=== PATIENT | female | born 1935 | race Caucasian/White ===

== ENCOUNTER 2016-11-09 06:35 | Emergency (ER) | payer MEDICARE, BC ==
--- NOTE | 2016-11-09 07:07 | EDM.PDOC ---
ED HISTORY OF PRESENT ILLNESS - General Chief Complaint: Respiratory Problem Stated Complaint: BY AMBULANCE Time Seen by Provider: 11/09/16 06:58 Source of Information: Reports: Patient History Limitations: Reports: No limitations - History of Present Illness INITIAL COMMENTS - FREE TEXT/NARRATIVE: Patient states that she woke this am with difficulty breathing. 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 States that she feels like she is having trouble getting air around the mass. No other complaints currently. States that she has been having some nasal drainage and dizziness since September. 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 - Related Data Allergies/ADRs: Allergies Allergy/AdvReac Type Severity Reaction Status Date / Time Nyldzxs-Dzt-Rwa Reductase Allergy Muscle Verified 10/22/16 07:17 Inhibitor Weakness Home Meds: Home Meds Aspirin [Adult Low Dose Aspirin EC] 81 mg PO DAILY 01/14/15 [History] Garlic [Garlique] 1 tab PO DAILY 01/14/15 [History] Hydrochlorothiazide 25 mg PO DAILY 01/14/15 [History] Lutein/Minerals/Vit A,C & E [I-Gerald] 1 tab PO DAILY 01/14/15 [History] Metoprolol Succinate [Toprol XL 50mg] 50 mg PO DAILY 01/14/15 [History] Potassium Chloride [Klor-Con] 20 meq PO DAILY 11/09/16 [History] Past Medical History Cardiovascular History: Reports: Hypertension - Infectious Disease History Infectious Disease History: Reports: Chicken pox, Measles, Mumps - Past Surgical History Musculoskeletal Surgical History: Reports: Knee replacement Social & Family History - Family History Family Medical History: Noncontributory - Tobacco Use Smoking Status *Q: Never Smoker Second Hand Smoke Exposure: No - Caffeine Use Caffeine Use: Reports: Coffee - Alcohol Use Days Per Week of Alcohol Use: 0 - Recreational Drug Use Recreational Drug Use: No - Living Situation & Occupation Occupation: retired ED ROS GENERAL - Review of Systems Review Of Systems: See Below HEENT: Reports: Rhinitis, Throat swelling Respiratory: Reports: shortness of breath, cough Cardiovascular: Reports: No symptoms GI/Abdominal: Reports: No symptoms Skin: Reports: no symptoms Neurological: Reports: dizziness ED EXAM, GENERAL - Physical Exam Exam: See Below Exam Limited By: No limitations General Appearance: alert, WD/WN, no apparent distress Eye Exam: bilateral eye: EOMI, normal inspection, PERRL Ears: normal external exam, normal canal, hearing grossly normal, normal TMs Ear Exam: bilateral ear: auricle normal, canal normal, TM normal Nose: nasal drainage, clear rhinorrhea Throat/Mouth: Normal inspection, Normal lips, Normal teeth, Normal gums, Normal oropharynx, Normal voice, No airway compromise Neck: normal inspection, supple, non-tender, full range of motion, thyromegaly Respiratory/Chest: no respiratory distress, lungs clear, normal breath sounds, no accessory muscle use, chest non-tender Cardiovascular: normal peripheral pulses, regular rate, rhythm, no edema, no gallop, no JVD, no murmur, no rub GI/Abdominal: normal bowel sounds, soft, non tender, no organomegaly, no distention, no abnormal bruit, no mass Neurological: alert, oriented, CN II-XII intact, normal cognition, normal gait, normal reflexes, no motor/sensory deficits Skin Exam: Warm, Dry, Intact, Normal color, No rash Lymphatic: no adenopathy Course - Vital Signs Last Recorded V/S: Last Vital Signs Temp 97 F 11/09/16 06:51 Pulse 70 11/09/16 09:19 Resp 12 11/09/16 09:19 BP 125/60 11/09/16 09:19 Pulse Ox 100 11/09/16 09:19 - Orders/Labs/Meds Orders: Active Orders 24 hr Category Date Time Status RT Aerosol Therapy [RC] ASDIRECTED Care 11/09/16 09:03 Active Chest 2V [CR] Urgent Exams 11/09/16 07:15 Taken Soft Tissue Neck wo Cont [CT] Urgent Exams 11/09/16 07:15 Taken Sodium Chloride 0.9% [Normal Saline] 1,000 ml Med 11/09/16 07:15 Active IV .BOLUS Medication Orders Sodium Chloride (Normal Saline) 1,000 mls @ 75 mls/hr IV .BOLUS ONE Stop: 11/09/16 20:34 Last Admin: 11/09/16 08:16 Dose: 75 mls/hr Labs: Laboratory Tests 11/09/16 11/09/16 11/09/16 Range/Units 07:25 07:25 07:25 WBC 8.7 (5.0-10.0) 10^3/uL RBC 4.48 (4.2-5.4) 10^6/uL Hgb 13.2 (12.0-16.0) g/dL Hct 38.3 (37.0-47.0) % MCV 85.5 (80-100) fL MCH 29.5 (27.0-34.0) pg MCHC 34.5 (33.0-35.0) g/dL Plt Count 367 (150-450) 10^3/uL Neut % (Auto) 76.4 H (42.2-75.2) % Lymph % (Auto) 14.3 L (20.5-50.1) % [place] % (Auto) 8.3 H (2-8) % Eos % (Auto) 0.3 L (1.0-3.0) % Baso % (Auto) 0.7 (0.0-1.0) % Sodium 133 L (135-145) mmol/L Potassium 3.6 (3.6-5.0) mmol/L Chloride 100 L (101-111) mmol/L Carbon Dioxide 25.0 (21.0-31.0) mmol/L Anion Gap 11.6 BUN 10 (7-18) mg/dL Creatinine 0.6 (0.6-1.3) mg/dL Est Cr Clr Drug Dosing 66.17 mL/min Estimated GFR (MDRD) > 60 BUN/Creatinine Ratio 16.66 Glucose 109 H (74-105) mg/dL Calcium 8.9 (8.4-10.2) mg/dl Total Bilirubin 0.7 (0.2-1.0) mg/dL AST 16 (10-42) IU/L ALT 13 (10-60) IU/L Alkaline Phosphatase 48 (42-121) IU/L Troponin I < 0.02 (0.00-0.02) ng/ml Total Protein 6.6 L (6.7-8.2) g/dl Albumin 3.6 (3.2-5.5) g/dl Globulin 3.0 Albumin/Globulin Ratio 1.20 TSH, Ultra Sensitive 0.38 (0.35-7.0) uIu/mL Meds: Medications Generic Name Dose Route Start Last Admin Trade Name Freq PRN Reason Stop Dose Admin Sodium Chloride 1,000 mls @ 75 mls/hr 11/09/16 07:15 11/09/16 08:16 Normal Saline IV 11/09/16 20:34 75 mls/hr .BOLUS ONE Administration Discontinued Medications Generic Name Dose Route Start Last Admin Trade Name Freq PRN Reason Stop Dose Admin Albuterol/Ipratropium 3 ml 11/09/16 09:03 Duoneb 3.0-0.5 Mg/3 Ml NEB 11/09/16 09:04 ONETIME ONE Dexamethasone 4 mg 11/09/16 09:03 11/09/16 09:09 Dexamethasone IVPUSH 11/09/16 09:04 4 mg ONETIME ONE Administration - Radiology Interpretation Free Text/Narrative:: Spoke with radiologist Dr. Agustin about Ct neck and states that pts' airway appears patent and normal in diameter. Does not feel that mass is impinging on airway. - Re-Assessments/Exams Free Text/Narrative Re-Assessment/Exam: 11/09/16 09:35 pt states that she feels better after the breathing treatment. Departure - Departure Time of Disposition: 09:44 Disposition: Home, Self-Care 01 Condition: good Clinical Impression: Cough due to bronchospasm Acute bronchiolitis Qualifiers: Bronchiolitis organism: unspecified organism Qualified Code(s): J21.9 - Acute bronchiolitis, unspecified Rhinitis Qualifiers: Rhinitis type: unspecified Qualified Code(s): J31.0 - Chronic rhinitis Instructions: Shortness of Breath, Jqrw-zs-[id number], Nasal Allergies Forms: ED Department Discharge Additional Instructions: Take the pearls as needed up to three times a day for cough. You may benefit from an antihistamine so I've prescribed claritin. You may take it as needed for nasal drainage once a day. Make sure to keep your appointment on Thursday for the thyroid mass evaluation. Retrun for any worsening symptoms. - My Orders Last 24 Hours: My Active Orders 11/09/16 07:15 Chest 2V [CR] Urgent Soft Tissue Neck wo Cont [CT] Urgent Sodium Chloride 0.9% [Normal Saline] 1,000 ml IV .BOLUS 11/09/16 09:03 RT Aerosol Therapy [RC] ASDIRECTED - Assessment/Plan Last 24 Hours: My Active Orders 11/09/16 07:15 Chest 2V [CR] Urgent Soft Tissue Neck wo Cont [CT] Urgent Sodium Chloride 0.9% [Normal Saline] 1,000 ml IV .BOLUS 11/09/16 09:03 RT Aerosol Therapy [RC] ASDIRECTED
[2016-11-09] MEDS ORDERED: Sodium Chloride 0.9% 1,000 ML IV ONE (07:15)
[2016-11-09 07:49] LABS: CHLORIDE,CL 100 mmol/L (101-111); SODIUM,NA 133 mmol/L (135-145)
[2016-11-09] MEDS ORDERED: Dexamethasone 4 MG/ML SDV IVPUSH ONE (09:03)
[2016-11-09] MEDS: Albuterol/Ipratropium 3.0-0.5 MG/3 ML Neb Soln NEB ONE ×2 (09:15→10:49)
[2016-11-09 09:57] VITALS: BP 137/80
== END 2016-11-09 09:45 | disposition home or self-care (01) ==
LOC: DL.ED 06:35
DX: J21.9 Acute bronchiolitis, unspecified (principal); J31.0 Chronic rhinitis; I10 Essential (primary) hypertension; Z79.82 Long term (current) use of aspirin; Z79.899 Other long term (current) drug therapy; Z88.8 Allergy status to other drugs, medicaments and biological substances; J39.8 Other specified diseases of upper respiratory tract
CPT/HCPCS: 36415; 70490; 71020; 80053; 84443; 84484; 85025; 94640; 96361; 96374; 99284; 99285; J1100; J7030

== ENCOUNTER 2019-05-26 05:01 | Inpatient (IN) | payer MEDICARE, BC ==
--- NOTE | 2019-05-26 05:27 | EDM.PDOC ---
"ED HPI GENERAL MEDICAL PROBLEM - General Chief Complaint: General Stated Complaint: AMBULANCE-DIFFICULTY BREATHING Time Seen by Provider: 05/26/19 05:10 Source of Information: Reports: Patient History Limitations: Reports: No Limitations - History of Present Illness INITIAL COMMENTS - FREE TEXT/NARRATIVE: ED via [facility] with c/o of throat feeling dry, difficulty swallowing, No chest or abdominal pain, Dizzy at rest no change with movment. Denies nausea , no vomiting, no dark stools. No sore throat. - Related Data Allergies Allergy/AdvReac Type Severity Reaction Status Date / Time Jowmwfk-Ubh-Iey Reductase Allergy Muscle Verified 10/22/16 07:17 Inhibitor Weakness Home Meds: Home Meds Aspirin [Adult Low Dose Aspirin EC] 81 mg PO DAILY 01/14/15 [History] Garlic [Garlique] 1 tab PO DAILY 01/14/15 [History] Lutein/Minerals/Vit A,C & E [I-Gerald] 1 tab PO DAILY 01/14/15 [History] Metoprolol Succinate [Toprol XL 50mg] 50 mg PO DAILY 01/14/15 [History] hydroCHLOROthiazide [Hydrochlorothiazide] 25 mg PO DAILY 01/14/15 [History] Potassium Chloride [Klor-Con] 20 meq PO DAILY 11/09/16 [History] Past Medical History HEENT History: Reports: Impaired Vision Cardiovascular History: Reports: Hypertension Gastrointestinal History: Reports: GERD Endocrine/Metabolic History: Reports: Other (See Below) Other Endocrine/Metabolic History: 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 - Infectious Disease History Infectious Disease History: Reports: Chicken Pox, Measles, Mumps - Past Surgical History HEENT Surgical History: Reports: Cataract Surgery, Tonsillectomy Musculoskeletal Surgical History: Reports: Knee Replacement Social & Family History - Family History Family Medical History: Noncontributory - Tobacco Use Smoking Status *Q: Never Smoker - Caffeine Use Caffeine Use: Reports: Coffee - Recreational Drug Use Recreational Drug Use: No - Living Situation & Occupation Occupation: Retired ED ROS GENERAL - Review of Systems Review Of Systems: See Below Constitutional: Denies: Fever, Chills, Decreased Appetite Respiratory: Denies: Shortness of Breath, Wheezing Cardiovascular: Reports: No Symptoms GI/Abdominal: Reports: No Symptoms Musculoskeletal: Reports: No Symptoms Skin: Reports: No Symptoms Neurological: Reports: Dizziness Psychiatric: Reports: Anxiety ED EXAM, GENERAL - Physical Exam Exam: See Below Exam Limited By: No Limitations General Appearance: Alert, No Apparent Distress, Anxious Eye Exam: Bilateral Eye: EOMI, PERRL Ears: Normal External Exam Nose: Normal Inspection Throat/Mouth: Normal Inspection Head: Atraumatic, Normocephalic Neck: Normal Inspection, Full Range of Motion Respiratory/Chest: Normal Breath Sounds Cardiovascular: Normal Peripheral Pulses, Regular Rate, Rhythm GI/Abdominal: Normal Bowel Sounds, Soft, Non-Tender Back Exam: Full Range of Motion Extremities: Normal Range of Motion Neurological: Alert, Oriented, Normal Cognition, No Motor/Sensory Deficits, Slow to Respond, Other (equal strength bilateral, no drifts. ). No: Memory Loss Remote Events, Memory Loss Recent Events Psychiatric: Flat Affect, Other (eyes closed , withdrawn. ) Skin Exam: Warm, Dry, Intact, Normal Color EKG INTERPRETATION Rhythm: NSR Course - Vital Signs Last Recorded V/S: Last Vital Signs Temp 97.5 F 05/26/19 05:07 Pulse 63 05/26/19 05:07 Resp 12 05/26/19 05:07 BP 143/64 H 05/26/19 05:07 Pulse Ox 97 05/26/19 05:07 Orthostatic Blood Pressure [ 145/71 Standing] Orthostatic Blood Pressure [ 150/59 Sitting] Orthostatic Blood Pressure [ 143/61 Supine] - Orders/Labs/Meds Orders: Active Orders 24 hr Category Date Time Status EKG Documentation Completion [RC] URGENT Care 05/26/19 05:08 Active Orthostatic Vital Signs [RC] ASDIRECTED Care 05/26/19 06:16 Active CXR [Chest 1V Frontal] [CR] Urgent Exams 05/26/19 05:09 Taken Head wo Cont [CT] Urgent Exams 05/26/19 05:10 Taken Sodium Chloride 0.9% [Normal Saline] 500 ml Med 05/26/19 06:30 Active IV .BOLUS Medication Orders Sodium Chloride (Normal Saline) 500 mls @ 150 mls/hr IV .BOLUS DAVID Last Admin: 05/26/19 06:32 Dose: 150 mls/hr Labs: Laboratory Tests 05/26/19 05/26/19 05/26/19 Range/Units 05:16 05:16 05:16 WBC 7.3 (5.0-10.0) 10^3/uL RBC 4.41 (4.2-5.4) 10^6/uL Hgb 13.7 (12.0-16.0) g/dL Hct 38.0 (37.0-47.0) % MCV 86.2 (80-100) fL MCH 31.1 (27.0-34.0) pg MCHC 36.1 H (33.0-35.0) g/dL Plt Count 320 (150-450) 10^3/uL Neut % (Auto) 76.0 H (42.2-75.2) % Lymph % (Auto) 16.9 L (20.5-50.1) % [place] % (Auto) 6.3 (2-8) % Eos % (Auto) 0.3 L (1.0-3.0) % Baso % (Auto) 0.5 (0.0-1.0) % D-Dimer, Quantitative (0-400) ng/mL Sodium 125 L (135-145) mmol/L Potassium 3.1 L (3.6-5.0) mmol/L Chloride 95 L (101-111) mmol/L Carbon Dioxide 23.0 (21.0-31.0) mmol/L Anion Gap 10.1 BUN 10 (7-18) mg/dL Creatinine 0.5 L (0.6-1.3) mg/dL Est Cr Clr Drug Dosing 78.41 mL/min Estimated GFR (MDRD) > 60 BUN/Creatinine Ratio 20.00 Glucose 128 H (74-105) mg/dL Calcium 8.5 (8.4-10.2) mg/dl Total Bilirubin 1.0 (0.2-1.0) mg/dL AST 24 (10-42) IU/L ALT 16 (10-60) IU/L Alkaline Phosphatase 35 L (42-121) IU/L CK-MB (CK-2) 4.10 (0.4-4.7) ng/mL Troponin I < 0.02 (0.00-0.02) ng/ml B-Natriuretic Peptide 120 H (0-100) pg/ml Total Protein 6.7 (6.7-8.2) g/dl Albumin 4.0 (3.2-5.5) g/dl Globulin 2.7 Albumin/Globulin Ratio 1.48 Urine Color (YELLOW) Urine Appearance (CLEAR) Urine pH (5.0-9.0) Ur Specific [place] (1.005-1.030) Urine Protein (NEGATIVE) Urine Glucose (UA) (NEGATIVE) Urine Ketones (NEGATIVE) Urine Occult Blood (NEGATIVE) Urine Nitrite (NEGATIVE) Urine Bilirubin (NEGATIVE) Urine Urobilinogen (0.2-1.0) mg/dL Ur Leukocyte Esterase (NEGATIVE) Urine RBC /HPF Urine WBC (0-5/HPF) /HPF Ur Epithelial Cells (NOT SEEN) /HPF Urine Bacteria (0-FEW/HPF) /HPF Urine Mucus (NOT SEEN) /LPF 05/26/19 05/26/19 Range/Units 05:16 06:23 WBC (5.0-10.0) 10^3/uL RBC (4.2-5.4) 10^6/uL Hgb (12.0-16.0) g/dL Hct (37.0-47.0) % MCV (80-100) fL MCH (27.0-34.0) pg MCHC (33.0-35.0) g/dL Plt Count (150-450) 10^3/uL Neut % (Auto) (42.2-75.2) % Lymph % (Auto) (20.5-50.1) % [place] % (Auto) (2-8) % Eos % (Auto) (1.0-3.0) % Baso % (Auto) (0.0-1.0) % D-Dimer, Quantitative 350 (0-400) ng/mL Sodium (135-145) mmol/L Potassium (3.6-5.0) mmol/L Chloride (101-111) mmol/L Carbon Dioxide (21.0-31.0) mmol/L Anion Gap BUN (7-18) mg/dL Creatinine (0.6-1.3) mg/dL Est Cr Clr Drug Dosing mL/min Estimated GFR (MDRD) BUN/Creatinine Ratio Glucose (74-105) mg/dL Calcium (8.4-10.2) mg/dl Total Bilirubin (0.2-1.0) mg/dL AST (10-42) IU/L ALT (10-60) IU/L Alkaline Phosphatase (42-121) IU/L CK-MB (CK-2) (0.4-4.7) ng/mL Troponin I (0.00-0.02) ng/ml B-Natriuretic Peptide (0-100) pg/ml Total Protein (6.7-8.2) g/dl Albumin (3.2-5.5) g/dl Globulin Albumin/Globulin Ratio Urine Color Yellow (YELLOW) Urine Appearance Clear (CLEAR) Urine pH 8.5 (5.0-9.0) Ur Specific [place] 1.015 (1.005-1.030) Urine Protein Trace H (NEGATIVE) Urine Glucose (UA) Negative (NEGATIVE) Urine Ketones 15 H (NEGATIVE) Urine Occult Blood Trace-intact H (NEGATIVE) Urine Nitrite Negative (NEGATIVE) Urine Bilirubin Negative (NEGATIVE) Urine Urobilinogen 0.2 (0.2-1.0) mg/dL Ur Leukocyte Esterase Negative (NEGATIVE) Urine RBC 0-5 /HPF Urine WBC 0-5 (0-5/HPF) /HPF Ur Epithelial Cells Moderate H (NOT SEEN) /HPF Urine Bacteria Not seen (0-FEW/HPF) /HPF Urine Mucus Few H (NOT SEEN) /LPF Meds: Medications Generic Name Dose Route Start Last Admin Trade Name Freq PRN Reason Stop Dose Admin Sodium Chloride 500 mls @ 150 mls/hr 05/26/19 06:30 05/26/19 06:32 Normal Saline IV 150 mls/hr .BOLUS DAVID Administration Discontinued Medications Generic Name Dose Route Start Last Admin Trade Name Freq PRN Reason Stop Dose Admin Potassium Chloride 20 meq 05/26/19 06:15 05/26/19 06:31 Klor-Con 10 PO 05/26/19 06:16 20 meq ONETIME ONE Administration Sodium Chloride 3 ml 05/26/19 05:34 05/26/19 05:49 Sodium Chloride 0.9% INH 05/26/19 05:35 3 ml ONETIME ONE Administration - Radiology Interpretation Free Text/Narrative:: Name: MASOOD PARSON Age: 84Years F Date: 05/26/2019 SSN: -- : 1935 Study: CT HEAD WO Requesting Physician: ZAINAB NIX Images: 182 Addl Studies: Provided Clinical History: Contrast: Without Contrast Medium: Contrast Amount: Contrast Method: Page 1 of 2 EXAM: CT Head Without Contrast EXAM DATE/TIME: 05/26/2019 5:44 AM CLINICAL HISTORY: 84 years old, female; Dizziness TECHNIQUE: Imaging protocol: Computed tomography images of the head without contrast. Coronal and sagittal reformatted images were created and reviewed. Radiation optimization: All CT scans at this facility use at least one of these dose optimization techniques: automated exposure control; mA and/or kV adjustment per patient size (includes targeted exams where dose is matched to clinical indication); or iterative reconstruction. COMPARISON: CT Head wo Cont 11/28/2016 2:22 PM FINDINGS: Brain: There is an expected degree of age-related atrophy and chronic white matter ischemic changes, with compensatory ventricular dilation. No acute intra-axial or extra- axial hemorrhage appreciated. [place] Stroke Program Early CT Score (ASPECTS) = 10. Ventricles: Normal. No ventriculomegaly. Bones/joints: Unremarkable. No acute fracture. Sinuses: Visualized sinuses are unremarkable. No fluid levels. Mastoid air cells: Visualized mastoid air cells are well aerated. No mastoid effusion. Soft tissues: Unremarkable. IMPRESSION: MASOOD PARSON | Final Radiology Report CONFIDENTIALITY STATEMENT This report is intended only for use by the referring physician, and only in accordance with law. If you received this in error, call [phone]. Page 2 of 2 1. There is an expected degree of age-related atrophy and chronic white matter ischemic changes, with compensatory ventricular dilation. 2. No acute intra-axial or extra-axial hemorrhage appreciated. 3. [place] Stroke Program Early CT Score (ASPECTS) = 10. COMMENT: If the symptoms that lead to this examination persist or worsen, or there is concern for CVA (which may not manifeston CT for the first 24-48 hours), close interval follow-up MRI ( or followup CT if the patient cannot undergo MRI evaluation) could provide additional information; only if clinically indicated. Thank you for allowing us to participate in the care of your patient [facility] Final Radiology Report Call: [phone] assistance Online chat: [email or web address] Name: MASOOD PARSON Age: 84Years F Date: 05/26/2019 SSN: -- : [id number] Study: XR CHEST 1 VIEW FRONTAL Requesting Physician: ZAINAB NIX Images: 1 Addl Studies: Provided Clinical History: Contrast: Contrast Medium: Contrast Amount: Contrast Method: CONFIDENTIALITY STATEMENT This report is intended only for use by the referring physician, and only in accordance with law. If you received this in error, call [phone]. Page 1 of 1 EXAM: XR Chest, 1 View EXAM DATE/TIME: 05/26/2019 5:14 AM CLINICAL HISTORY: 84 years old, female; Other: Dizzy TECHNIQUE: Imaging protocol: XR of the chest, 1 view. COMPARISON: CR Chest 2V 11/09/2016 7:35 AM FINDINGS: Lungs: Minimal patchy airspace disease at the left lung base. Pleural space: Unremarkable. No pleural effusion. No pneumothorax. Heart/Mediastinum: Unremarkable. No cardiomegaly. Bones/joints: Unremarkable. IMPRESSION: Minimal patchy airspace disease at the left lung base. Followup radiographs recommended after appropriate therapy. Thank you for allowing us to participate in the care of your patient. Dictated and Authenticated by: Pedro Oliver MD 05/26/2019 5:30 AM Central Time ([place] - Re-Assessments/Exams Free Text/Narrative Re-Assessment/Exam: 05/26/19 06:51 Generalized weakness when up to bedside for ortho and bathroom. TC Dr Tipton, accepting patient CHI, hyponatremia and hypokalemia. Departure - Departure Time of Disposition: 06:55 Disposition: Refer to Observation Condition: Good Clinical Impression: Generalized weakness, Hyponatremia, Hypokalemia, Anxiety - Discharge Information *PRESCRIPTION DRUG MONITORING PROGRAM REVIEWED*: No *COPY OF PRESCRIPTION DRUG MONITORING REPORT IN PATIENT [place]: No Forms: ED Department Discharge - My Orders Last 24 Hours: My Active Orders 05/26/19 05:08 EKG Documentation Completion [RC] URGENT 05/26/19 05:09 CXR [Chest 1V Frontal] [CR] Urgent 05/26/19 05:10 Head wo Cont [CT] Urgent 05/26/19 06:16 Orthostatic Vital Signs [RC] ASDIRECTED 05/26/19 06:30 Sodium Chloride 0.9% [Normal Saline] 500 ml IV .BOLUS - Assessment/Plan Last 24 Hours: My Active Orders 05/26/19 05:08 EKG Documentation Completion [RC] URGENT 05/26/19 05:09 CXR [Chest 1V Frontal] [CR] Urgent 05/26/19 05:10 Head wo Cont [CT] Urgent 05/26/19 06:16 Orthostatic Vital Signs [RC] ASDIRECTED 05/26/19 06:30 Sodium Chloride 0.9% [Normal Saline] 500 ml IV .BOLUS"
[2019-05-26] MEDS ORDERED: Sodium Chloride 0.9% Inhalation Soln 3 ML Neb INH ONE (05:34)
[2019-05-26 05:45] LABS: ANION GAP 10.1; CHLORIDE,CL 95 mmol/L (101-111); SODIUM,NA 125 mmol/L (135-145)
[2019-05-26] MEDS ORDERED: Potassium Chloride 10 MEQ Tab.ER PO ONE (06:15)
[2019-05-26] MEDS ORDERED: Sodium Chloride 0.9% 500 ML IV SCH (06:30)
[2019-05-26] MEDS ORDERED: Acetaminophen 325 MG Tab PO PRN (08:48)
[2019-05-26] MEDS ORDERED: Docusate Sodium 100 MG Cap PO PRN (08:48)
[2019-05-26] MEDS ORDERED: Magnesium Hydroxide 400 MG/5 ML Susp 30 ML Cup PO PRN (08:48)
[2019-05-26] MEDS ORDERED: Lutein/Minerals/Vit A,C & E Tab PO SCH (09:00)
[2019-05-26] MEDS ORDERED: GARLIC PO SCH (09:00)
[2019-05-26] MEDS ORDERED: Hydrochlorothiazide 25 MG Tab PO SCH (09:00)
[2019-05-26] MEDS ORDERED: Non-Formulary Medication 1 Each (Potassium Chloride [Klor-Con] 20 MEQ) PO SCH (09:00)
[2019-05-26] MEDS ORDERED: Aspirin 81 MG Tab.EC PO SCH ×2 (09:00→21:00)
--- NOTE | 2019-05-26 09:08 | PCM.HP ---
H&P History of Present Illness - General Date of Service: 05/26/19 Admit Problem/Dx: Admission Diagnosis/Problem Admission Diagnosis/Problem Hyponatremia Source of Information: Patient History Limitations: Reports: No Limitations - History of Present Illness Initial Comments - Free Text/Narative: 84 y/o resident of assisted living facility with PMH of HTN was brought to the ER because of feeling generally weak. Patient was c/o feeling generally weak this morning. She denies any symptoms. No diarrhea, vomiting, abdominal pain. No fever or chills. She denies chest pain, SOB. Patient is on HCTZ for hypertension. Her Na on admit was 125 and K was 3.1. CT brain was negative. Onset of Symptoms: Reports: Gradual Duration of Symptoms: Reports: Day(s):, Constant Severity: Moderate (Generalized weakness) Improves with: Reports: None Worsens with: Reports: None Associated Symptoms: Reports: No Other Symptoms - Related Data Allergies/Adverse Reactions: Allergies Allergy/AdvReac Type Severity Reaction Status Date / Time Clnpgwf-Yst-Mud Reductase Allergy Muscle Verified 05/26/19 07:56 Inhibitor Weakness Home Medications: Home Meds Aspirin [Adult Low Dose Aspirin EC] 81 mg PO DAILY 01/14/15 [History] Garlic [Garlique] 1 tab PO DAILY 01/14/15 [History] Lutein/Minerals/Vit A,C & E [I-Gerald] 1 tab PO DAILY 01/14/15 [History] Metoprolol Succinate [Toprol XL 50mg] 50 mg PO DAILY 01/14/15 [History] hydroCHLOROthiazide [Hydrochlorothiazide] 25 mg PO DAILY 01/14/15 [History] Potassium Chloride [Klor-Con] 20 meq PO DAILY 11/09/16 [History] Past Medical History HEENT History: Reports: Cataract, Impaired Vision Cardiovascular History: Reports: Hypertension Gastrointestinal History: Reports: GERD Neurological History: Reports: Other (See Below) Other Neuro History: forgetful at times Endocrine/Metabolic History: Reports: Other (See Below) Other Endocrine/Metabolic History: 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 - Infectious Disease History Infectious Disease History: Reports: Chicken Pox, Measles, Mumps - Past Surgical History HEENT Surgical History: Reports: Adenoidectomy, Cataract Surgery, Tonsillectomy Cardiovascular Surgical History: Reports: None GI Surgical History: Reports: Colonoscopy Neurological Surgical History: Reports: None Musculoskeletal Surgical History: Reports: Knee Replacement, Other (See Below) Other Musculoskeletal Surgeries/Procedures:: bilateral knee replacement Social & Family History - Family History Family Medical History: Noncontributory - Tobacco Use Smoking Status *Q: Never Smoker Second Hand Smoke Exposure: No - Caffeine Use Caffeine Use: Reports: Coffee - Recreational Drug Use Recreational Drug Use: No - Living Situation & Occupation Occupation: Retired H&P Review of Systems - Review of Systems: Review Of Systems: See Below General: Reports: Weakness HEENT: Reports: No Symptoms Pulmonary: Reports: No Symptoms Cardiovascular: Reports: No Symptoms Gastrointestinal: Reports: No Symptoms Genitourinary: Reports: No Symptoms Musculoskeletal: Reports: No Symptoms Skin: Reports: No Symptoms Psychiatric: Reports: No Symptoms Neurological: Reports: No Symptoms Hematologic/Lymphatic: Reports: No Symptoms Immunologic: Reports: No Symptoms Exam - Exam Exam: See Below (general weakness) - Vital Signs Vital Signs: Last Vital Signs Temp 97.5 F 05/26/19 07:51 Pulse 56 L 05/26/19 07:51 Resp 16 05/26/19 07:51 BP 153/60 H 05/26/19 07:51 Pulse Ox 96 05/26/19 07:51 Orthostatic Blood Pressure [ 145/71 Standing] Orthostatic Blood Pressure [ 150/59 Sitting] Orthostatic Blood Pressure [ 143/61 Supine] Weight: 162 lb 3.2 oz - Exam Quality Assessment: DVT Prophylaxis (Feels generally weak. No focal deficit) General: Alert, Oriented, 4 HEENT: PERRLA, Hearing Intact, Mucosa Moist & [place], Nares Patent, Normal Nasal Septum, Posterior Pharynx Clear, Conjunctiva Clear, EOMI, EACs Clear, TMs Clear Neck: Supple, Trachea Midline, 2 Lungs: Clear to Auscultation, Normal Respiratory Effort Cardiovascular: Regular Rate, Regular Rhythm GI/Abdominal Exam: Normal Bowel Sounds, Soft, Non-Tender, No Organomegaly, No Distention, No Abnormal Bruit, No Mass, Pelvis Stable (Female) Exam: Normal External Exam, Normal Speculum Exam, Normal Bimanual Exam Rectal (Female) Exam: Normal Exam, Normal Rectal Tone Back Exam: Normal Inspection, Full Range of Motion, NT Extremities: Normal Inspection, Normal Range of Motion, Non-Tender, No Pedal Edema, Normal Capillary Refill Skin: Warm, Dry, Intact Neurological: Cranial Nerves Intact, Reflexes Equal Bilateral Neuro Extensive - Mental Status: Alert, Oriented x3, Normal Mood/Affect, Normal Cognition Neuro Extensive - Motor, Sensory, Reflexes: CN II-XII Intact, Normal Gait, Normal Reflexes Psychiatric: Alert, Normal Affect, Normal Mood - Patient Data Lab Results Last 24 hrs: Laboratory Results - last 24 hr 05/26/19 05/26/19 05/26/19 Range/Units 05:16 05:16 05:16 WBC 7.3 (5.0-10.0) 10^3/uL RBC 4.41 (4.2-5.4) 10^6/uL Hgb 13.7 (12.0-16.0) g/dL Hct 38.0 (37.0-47.0) % MCV 86.2 (80-100) fL MCH 31.1 (27.0-34.0) pg MCHC 36.1 H (33.0-35.0) g/dL Plt Count 320 (150-450) 10^3/uL Neut % (Auto) 76.0 H (42.2-75.2) % Lymph % (Auto) 16.9 L (20.5-50.1) % Meade % (Auto) 6.3 (2-8) % Eos % (Auto) 0.3 L (1.0-3.0) % Baso % (Auto) 0.5 (0.0-1.0) % D-Dimer, Quantitative (0-400) ng/mL Sodium 125 L (135-145) mmol/L Potassium 3.1 L (3.6-5.0) mmol/L Chloride 95 L (101-111) mmol/L Carbon Dioxide 23.0 (21.0-31.0) mmol/L Anion Gap 10.1 BUN 10 (7-18) mg/dL Creatinine 0.5 L (0.6-1.3) mg/dL Est Cr Clr Drug Dosing 78.41 mL/min Estimated GFR (MDRD) > 60 BUN/Creatinine Ratio 20.00 Glucose 128 H (74-105) mg/dL Calcium 8.5 (8.4-10.2) mg/dl Total Bilirubin 1.0 (0.2-1.0) mg/dL AST 24 (10-42) IU/L ALT 16 (10-60) IU/L Alkaline Phosphatase 35 L (42-121) IU/L CK-MB (CK-2) 4.10 (0.4-4.7) ng/mL Troponin I < 0.02 (0.00-0.02) ng/ml B-Natriuretic Peptide 120 H (0-100) pg/ml Total Protein 6.7 (6.7-8.2) g/dl Albumin 4.0 (3.2-5.5) g/dl Globulin 2.7 Albumin/Globulin Ratio 1.48 Urine Color (YELLOW) Urine Appearance (CLEAR) Urine pH (5.0-9.0) Ur Specific Titus (1.005-1.030) Urine Protein (NEGATIVE) Urine Glucose (UA) (NEGATIVE) Urine Ketones (NEGATIVE) Urine Occult Blood (NEGATIVE) Urine Nitrite (NEGATIVE) Urine Bilirubin (NEGATIVE) Urine Urobilinogen (0.2-1.0) mg/dL Ur Leukocyte Esterase (NEGATIVE) Urine RBC /HPF Urine WBC (0-5/HPF) /HPF Ur Epithelial Cells (NOT SEEN) /HPF Urine Bacteria (0-FEW/HPF) /HPF Urine Mucus (NOT SEEN) /LPF 05/26/19 05/26/19 Range/Units 05:16 06:23 WBC (5.0-10.0) 10^3/uL RBC (4.2-5.4) 10^6/uL Hgb (12.0-16.0) g/dL Hct (37.0-47.0) % MCV (80-100) fL MCH (27.0-34.0) pg MCHC (33.0-35.0) g/dL Plt Count (150-450) 10^3/uL Neut % (Auto) (42.2-75.2) % Lymph % (Auto) (20.5-50.1) % [place] % (Auto) (2-8) % Eos % (Auto) (1.0-3.0) % Baso % (Auto) (0.0-1.0) % D-Dimer, Quantitative 350 (0-400) ng/mL Sodium (135-145) mmol/L Potassium (3.6-5.0) mmol/L Chloride (101-111) mmol/L Carbon Dioxide (21.0-31.0) mmol/L Anion Gap BUN (7-18) mg/dL Creatinine (0.6-1.3) mg/dL Est Cr Clr Drug Dosing mL/min Estimated GFR (MDRD) BUN/Creatinine Ratio Glucose (74-105) mg/dL Calcium (8.4-10.2) mg/dl Total Bilirubin (0.2-1.0) mg/dL AST (10-42) IU/L ALT (10-60) IU/L Alkaline Phosphatase (42-121) IU/L CK-MB (CK-2) (0.4-4.7) ng/mL Troponin I (0.00-0.02) ng/ml B-Natriuretic Peptide (0-100) pg/ml Total Protein (6.7-8.2) g/dl Albumin (3.2-5.5) g/dl Globulin Albumin/Globulin Ratio Urine Color Yellow (YELLOW) Urine Appearance Clear (CLEAR) Urine pH 8.5 (5.0-9.0) Ur Specific [place]itus 1.015 (1.005-1.030) Urine Protein Trace H (NEGATIVE) Urine Glucose (UA) Negative (NEGATIVE) Urine Ketones 15 H (NEGATIVE) Urine Occult Blood Trace-intact H (NEGATIVE) Urine Nitrite Negative (NEGATIVE) Urine Bilirubin Negative (NEGATIVE) Urine Urobilinogen 0.2 (0.2-1.0) mg/dL Ur Leukocyte Esterase Negative (NEGATIVE) Urine RBC 0-5 /HPF Urine WBC 0-5 (0-5/HPF) /HPF Ur Epithelial Cells Moderate H (NOT SEEN) /HPF Urine Bacteria Not seen (0-FEW/HPF) /HPF Urine Mucus Few H (NOT SEEN) /LPF Result Diagrams: 05/26/19 05:16 05/26/19 05:16 Beatrice Results Last 24 hrs: Microbiology 05/26/19 05:26 Stool Occult Blood (BEATRICE) - Final Stool / Feces NEGATIVE OCCULT BLOOD REFERENCE RANGE: NEGATIVE - Problem List (1) Generalized weakness SNOMED Code(s): 08277800 ICD Code: R53.1 - WEAKNESS Status: Acute Current Visit: No (2) Hyponatremia SNOMED Code(s): 02237793 ICD Code: E87.1 - HYPO-OSMOLALITY AND HYPONATREMIA Status: Acute Current Visit: No Problem List Initiated/Reviewed/Updated: Yes Orders Last 24hrs: Active Orders 24 hr Category Date Time Status Admission Diagnosis [ADT] Stat ADT 05/26/19 07:10 Ordered Admission Status [Patient Status] [ADT] Routine ADT 05/26/19 06:50 Active Antiembolic Devices [RC] .Routine Care 05/26/19 08:50 Ordered Intake and Output [RC] QSHIFT Care 05/26/19 08:49 Ordered Notify Provider Vital Signs [RC] ASDIRECTED Care 05/26/19 08:49 Ordered Up With Assistance [RC] ASDIRECTED Care 05/26/19 08:48 Ordered VTE/DVT Education [RC] PER UNIT ROUTINE Care 05/26/19 08:50 Ordered Vital Signs [RC] Q4H Care 05/26/19 08:48 Ordered Regular Diet [DIET] Diet 05/26/19 Breakfast Ordered Acetaminophen [Tylenol] Med 05/26/19 08:48 Ordered 650 mg PO Q4H PRN Aspirin [Halfprin] Med 05/26/19 09:00 Ordered 81 mg PO DAILY Docusate Sodium [Colace] Med 05/26/19 08:48 Ordered 100 mg PO DAILY PRN Garlic [Garlique] Med 05/26/19 09:00 Ordered 1 tab PO DAILY Heparin Sodium Med 05/26/19 09:00 Ordered 5,000 units SUBCUT Q12HR Lutein/Minerals/Vit A,C & E [I-Gerald] Med 05/26/19 09:00 Ordered 1 each PO DAILY Magnesium Hydroxide [Milk of Magnesia] Med 05/26/19 08:48 Ordered 30 ml PO BID PRN Metoprolol Succinate [Toprol XL] Med 05/26/19 09:00 Ordered 50 mg PO DAILY Potassium Chloride [Klor-Con] Med 05/26/19 09:00 Ordered 20 meq PO DAILY Sodium Chloride 0.9% [Normal Saline] 500 ml Med 05/26/19 06:30 Active IV .BOLUS hydroCHLOROthiazide Med 05/26/19 09:00 Ordered 25 mg PO DAILY DVT/VTE Prophylaxis Reflex [OM.PC] Routine Oth 05/26/19 08:48 Ordered Resuscitation Status Routine Resus Stat 05/26/19 08:48 Ordered Medication Orders Acetaminophen (Tylenol) 650 mg PO Q4H PRN PRN Reason: Pain (mild 1-3 )/fever Aspirin (Halfprin) 81 mg PO DAILY DAVID Docusate Sodium (Colace) 100 mg PO DAILY PRN PRN Reason: Constipation Heparin Sodium (Porcine) (Heparin Sodium) 5,000 units SUBCUT Q12HR DAVID Hydrochlorothiazide (Hydrochlorothiazide) 25 mg PO DAILY DAVID Sodium Chloride (Normal Saline) 500 mls @ 150 mls/hr IV .BOLUS DAVID Last Admin: 05/26/19 06:32 Dose: 150 mls/hr Magnesium Hydroxide (Milk Of Magnesia) 30 ml PO BID PRN PRN Reason: Constipation Metoprolol Succinate (Toprol Xl) 50 mg PO DAILY [facility] Multivitamins/Minerals (I-Gerald) 1 each PO DAILY DAVID Non-Formulary Medication (Garlic [Garlique]) 1 tab PO DAILY DAVID Non-Formulary Medication (Potassium Chloride [Klor-Con]) 20 meq PO DAILY DAVID Assessment/Plan Comment:: #General weakness likely due to hypokalemia and hyponatremia vs dehydration -Patient was brought to the ER because of feeling weak -She is non-focal on exam and oral mucosa appear dry -CT brain was negative -Na 125 -Potassium 3.1 -Admit to general medical floor -IV hydration with isotonic fluid @ 75 cc/ hr -PT/OT #Moderate Hyponatremia due to diuretic use -This is hypovolemic hyponatremia -Na 125 -Isotonic fluid @ 75 cc/ hr -Check Na q4h -Avoid rapid correction of Na to prevent osmotic demyelination syndrome #Hypokalemia due to diuretics use -IV replacement #HTN -Continue home HCTZ and Metoprolol -Monitor BP closley #General diat #Full code
[2019-05-26] MEDS ORDERED: Potassium Chloride 20 MEQ in Premix Bag 1 BAG IV ONE (09:54)
[2019-05-26] MEDS: busPIRone 5 MG Tab PO SCH ×2 (10:27→20:46)
[2019-05-26] MEDS: Venlafaxine 37.5 MG Cap.ER PO SCH (10:27)
[2019-05-26] MEDS: Metoprolol Succinate 50 MG Tab.ER PO SCH (10:28)
[2019-05-26] MEDS: Sodium Chloride 0.9% 1,000 ML IV SCH ×2 (10:30→23:59)
[2019-05-26] MEDS: Acetaminophen 325 MG Tab PO SCH ×2 (10:30→20:47)
[2019-05-26] MEDS: Heparin Sodium 5,000 Units/ML Vial SUBCUT SCH ×3 (10:30→20:58)
[2019-05-26 10:35] LABS: ANION GAP 7.9; CHLORIDE,CL 97 mmol/L (101-111); SODIUM,NA 126 mmol/L (135-145)
[2019-05-26] MEDS ORDERED: Sodium Chloride 0.9% 10 ML Syringe FLUSH PRN (10:48)
[2019-05-26] MEDS: Famotidine 20 MG Tab PO SCH ×2 (16:54→20:47)
[2019-05-26] MEDS ORDERED: diphenhydrAMINE 25 MG Tab PO PRN (20:01)
[2019-05-26] MEDS ORDERED: Potassium Chloride 10 MEQ Tab.ER PO SCH (21:00)
[2019-05-27] MEDS: diphenhydrAMINE 25 MG Tab PO ONE ×2 (02:52→06:39)
[2019-05-27] MEDS: busPIRone 5 MG Tab PO SCH (10:07)
[2019-05-27] MEDS: Famotidine 20 MG Tab PO SCH (10:08)
[2019-05-27] MEDS: Acetaminophen 325 MG Tab PO SCH (10:08)
[2019-05-27] MEDS: Venlafaxine 37.5 MG Cap.ER PO SCH (10:08)
[2019-05-27] MEDS: Metoprolol Succinate 50 MG Tab.ER PO SCH (10:08)
[2019-05-27 10:09] VITALS: BP 141/58
[2019-05-27] MEDS: Heparin Sodium 5,000 Units/ML Vial SUBCUT SCH (10:09)
--- NOTE | 2019-05-27 11:58 | PCM.DCSUM1 ---
Discharge Summary - Hospital Course Free Text/Narrative:: 84 y/o resident of assisted living facility with PMH of HTN was brought to the ER because of feeling generally weak. Her Na on admit was 125 and K was 3.1. CT brain was negative. She was subsequently admitted. Na trended up to 129 last night but dropped to 124 today. K now within normal limit. Patient in getting increasingly confused. She will be discharged to [facility] for further management. Diagnosis: Stroke: No - Discharge Data Discharge Date: 05/27/19 Discharge Disposition: DC/Tfer to Acute Hospital 02 Condition: Good - Discharge Diagnosis/Problem(s) (1) Generalized weakness SNOMED Code(s): 80229790 ICD Code: R53.1 - WEAKNESS Status: Acute Current Visit: No (2) Hyponatremia SNOMED Code(s): 87494974 ICD Code: E87.1 - HYPO-OSMOLALITY AND HYPONATREMIA Status: Acute Current Visit: No - Patient Summary/Data Consults: Consultations 05/26/19 09:12 PT Evaluation and Treatment [CONS] Routine 05/26/19 09:14 OT Evaluation and Treatment [CONS] Routine - Patient Instructions Fluid Restriction: 1500 mL Activity: As Tolerated Driving: Do Not Drive Showering/Bathing: May Shower Notify Provider of: Swelling and Redness, Nausea and/or Vomiting - Discharge Plan *PRESCRIPTION DRUG MONITORING PROGRAM REVIEWED*: No *COPY OF PRESCRIPTION DRUG MONITORING REPORT IN PATIENT CASTILLO: No Home Medications: Home Meds Aspirin [Adult Low Dose Aspirin EC] 81 mg PO BEDTIME 01/14/15 [History] Metoprolol Succinate [Toprol XL 50mg] 50 mg PO BEDTIME 01/14/15 [History] Acetaminophen [Tylenol] 650 mg PO BID 05/26/19 [History] Acetaminophen [Tylenol] 650 mg PO Q24H PRN 05/26/19 [History] Venlafaxine [Effexor XR] 37.5 mg PO DAILY 05/26/19 [History] busPIRone HCl [Buspirone HCl] 15 mg PO BID 05/26/19 [History] raNITIdine HCl [Zantac] 75 mg PO BID 05/26/19 [History] Oxygen Therapy Mode: Room Air Forms: ED Department Discharge Referrals: PCP,None [Primary Care Provider] - - Discharge Summary/Plan Comment DC Time >30 min.: Yes - General Info Date of Service: 05/27/19 Admission Dx/Problem (Free Text: Admission Diagnosis/Problem Admission Diagnosis/Problem Hyponatremia Functional Status: Reports: Pain Controlled, Other (patient confused) - Review of Systems General: Reports: No Symptoms HEENT: Reports: No Symptoms Pulmonary: Reports: No Symptoms Cardiovascular: Reports: No Symptoms Gastrointestinal: Reports: No Symptoms Genitourinary: Reports: No Symptoms Musculoskeletal: Reports: No Symptoms Skin: Reports: No Symptoms Neurological: Reports: No Symptoms Psychiatric: Reports: No Symptoms - Patient Data Vitals - Most Recent: Last Vital Signs Temp 97.8 F 05/27/19 08:00 Pulse 55 L 05/27/19 10:08 Resp 16 05/27/19 08:00 BP 141/58 H 05/27/19 10:08 Pulse Ox 96 05/27/19 08:00 Orthostatic Blood Pressure [ 145/71 Standing] Orthostatic Blood Pressure [ 150/59 Sitting] Orthostatic Blood Pressure [ 143/61 Supine] Weight - Most Recent: 162 lb 3.2 oz I&O - Last 24 hours: Intake & Output 05/26/19 05/27/19 05/27/19 22:59 06:59 14:59 Intake Total 950 Balance 950 Lab Results - Last 24 hrs: Laboratory Results - last 24 hr 05/26/19 05/26/19 05/26/19 Range/Units 14:00 17:58 22:00 WBC (5.0-10.0) 10^3/uL RBC (4.2-5.4) 10^6/uL Hgb (12.0-16.0) g/dL Hct (37.0-47.0) % MCV (80-100) fL MCH (27.0-34.0) pg MCHC (33.0-35.0) g/dL Plt Count (150-450) 10^3/uL Sodium 129 L 125 L 125 L (135-145) mmol/L Phosphorus (2.5-4.6) mg/dL Magnesium (1.8-2.5) mg/dL 05/27/19 05/27/19 05/27/19 Range/Units 01:54 05:58 09:55 WBC (5.0-10.0) 10^3/uL RBC (4.2-5.4) 10^6/uL Hgb (12.0-16.0) g/dL Hct (37.0-47.0) % MCV (80-100) fL MCH (27.0-34.0) pg MCHC (33.0-35.0) g/dL Plt Count (150-450) 10^3/uL Sodium 125 L 125 L 124 L (135-145) mmol/L Phosphorus (2.5-4.6) mg/dL Magnesium (1.8-2.5) mg/dL 05/27/19 05/27/19 Range/Units 09:55 09:55 WBC 6.0 (5.0-10.0) 10^3/uL RBC 4.50 (4.2-5.4) 10^6/uL Hgb 13.8 (12.0-16.0) g/dL Hct 39.1 (37.0-47.0) % MCV 86.9 (80-100) fL MCH 30.7 (27.0-34.0) pg MCHC 35.3 H (33.0-35.0) g/dL Plt Count 301 (150-450) 10^3/uL Sodium (135-145) mmol/L Phosphorus 1.7 L (2.5-4.6) mg/dL Magnesium 1.9 (1.8-2.5) mg/dL Med Orders - Current: Current Medications Acetaminophen (Tylenol) 650 mg PO Q4H PRN PRN Reason: Pain (mild 1-3 )/fever Acetaminophen (Tylenol) 650 mg PO BID [facility] Last Admin: 05/27/19 10:08 Dose: 650 mg Aspirin (Halfprin) 81 mg PO BEDTIME [facility] Last Admin: 05/26/19 20:48 Dose: 81 mg Buspirone HCl (Buspar) 15 mg PO BID [facility] Last Admin: 05/27/19 10:07 Dose: 15 mg Diphenhydramine HCl (Benadryl) 25 mg PO BEDTIME PRN PRN Reason: Anxiety Last Admin: 05/26/19 20:47 Dose: 25 mg Docusate Sodium (Colace) 100 mg PO DAILY PRN PRN Reason: Constipation Famotidine (Pepcid) 20 mg PO BID [facility] Last Admin: 05/27/19 10:08 Dose: 20 mg Heparin Sodium (Porcine) (Heparin Sodium) 5,000 units SUBCUT Q12HR [facility] Last Admin: 05/27/19 10:09 Dose: 5,000 units Sodium Chloride (Normal Saline) 500 mls @ 150 mls/hr IV .BOLUS [facility] Last Admin: 05/26/19 06:32 Dose: 150 mls/hr Sodium Chloride (Normal Saline) 1,000 mls @ 75 mls/hr IV ASDIRECTED [facility] Last Admin: 05/26/19 23:59 Dose: 75 mls/hr Magnesium Hydroxide (Milk Of Magnesia) 30 ml PO BID PRN PRN Reason: Constipation Metoprolol Succinate (Toprol Xl) 50 mg PO DAILY [facility] Last Admin: 05/27/19 10:08 Dose: 50 mg Potassium Chloride (Klor-Con 10) 40 meq PO BEDTIME [facility] Last Admin: 05/26/19 20:46 Dose: 40 meq Sodium Chloride (Saline Flush) 10 ml FLUSH ASDIRECTED PRN PRN Reason: Keep Vein Open Sodium Phosphate (Neutra-Phos) 250 mg PO QID [facility] Venlafaxine HCl (Effexor Xr) 37.5 mg PO DAILY [facility] Last Admin: 05/27/19 10:08 Dose: 37.5 mg Discontinued Medications Aspirin (Halfprin) 81 mg PO DAILY [facility] Last Admin: 05/26/19 10:39 Dose: Not Given Diphenhydramine HCl (Benadryl) 25 mg PO ONETIME ONE Stop: 05/27/19 02:38 Last Admin: 05/27/19 06:39 Dose: Not Given Hydrochlorothiazide (Hydrochlorothiazide) 25 mg PO DAILY [facility] Last Admin: 05/26/19 09:58 Dose: Not Given Potassium Chloride 20 meq/ (Premix) 100 mls @ 50 mls/hr IV ONETIME ONE Stop: 05/26/19 11:53 Last Infusion: 05/26/19 14:36 Dose: Infused Multivitamins/Minerals (I-Gerald) 1 each PO DAILY [facility] Last Admin: 05/26/19 09:58 Dose: Not Given Non-Formulary Medication (Garlic [Garlique]) 1 tab PO DAILY [facility] Last Admin: 05/26/19 09:58 Dose: Not Given Non-Formulary Medication (Potassium Chloride [Klor-Con]) 20 meq PO DAILY [facility] Last Admin: 05/26/19 09:59 Dose: Not Given Potassium Chloride (Klor-Con 10) 20 meq PO ONETIME ONE Stop: 05/26/19 06:16 Last Admin: 05/26/19 06:31 Dose: 20 meq Sodium Chloride (Sodium Chloride 0.9%) 3 ml INH ONETIME ONE Stop: 05/26/19 05:35 Last Admin: 05/26/19 05:49 Dose: 3 ml - Exam Quality Assessment: Reports: DVT Prophylaxis General: Reports: Alert, Oriented HEENT: Reports: Pupils Equal, Pupils Reactive, EOMI, Mucous Membr. Moist/[place] Neck: Reports: Supple Lungs: Reports: Clear to Auscultation, Normal Respiratory Effort Cardiovascular: Reports: Regular Rate, Regular Rhythm GI/Abdominal Exam: Normal Bowel Sounds, Soft, Non-Tender, No Organomegaly, No Distention, No Abnormal Bruit, No Mass, Pelvis Stable (Female) Exam: Normal External Exam, Normal Speculum Exam, Normal Bimanual Exam Rectal (Female) Exam: Normal Exam, Normal Rectal Tone Back Exam: Reports: Normal Inspection, Full Range of Motion Extremities: Normal Inspection, Normal Range of Motion, Non-Tender, No Pedal Edema, Normal Capillary Refill Skin: Reports: Warm, Dry, Intact Wound/Incisions: Reports: Healing Well Neurological: Reports: No New Focal Deficit Psy/Mental Status: Reports: Alert, Normal Affect, Normal Mood, Other (confused)
[2019-05-27] MEDS ORDERED: Ondansetron 4 MG/2 ML SDV IV ONE (12:21)
[2019-05-27] MEDS: Sodium Chloride 0.9% 1,000 ML IV SCH (12:28)
[2019-05-27] MEDS ORDERED: Phosphorus #1 250 MG Tab PO SCH (13:00)
== END 2019-05-27 12:48 | DRG 641 ==
LOC: DL.ED 05:01 → DL.MS 06:50 → OBSVTOIN 11:18 → DL.MS 14:48
PROVIDERS: ADMIT Student in an Organized Health Care Education/Training Program; ATTEND Student in an Organized Health Care Education/Training Program
DX: E87.1 Hypo-osmolality and hyponatremia (principal); E87.6 Hypokalemia; I10 Essential (primary) hypertension; H54.7 Unspecified visual loss; T50.2X5A Adverse effect of carbonic-anhydrase inhibitors, benzothiadiazides and other diuretics, initial encounter; E86.1 Hypovolemia; F41.9 Anxiety disorder, unspecified; K21.9 Gastro-esophageal reflux disease without esophagitis; Z96.653 Presence of artificial knee joint, bilateral; Z90.89 Acquired absence of other organs; Z88.8 Allergy status to other drugs, medicaments and biological substances; Z98.890 Other specified postprocedural states; Z98.49 Cataract extraction status, unspecified eye; Z79.82 Long term (current) use of aspirin; Z79.899 Other long term (current) drug therapy
CPT/HCPCS: 36415; 70450; 71045; 80048; 80053; 81001; 82272; 82553; 83735; 83880; 84100; 84295; 84484; 85025; 85027; 85379; 93005; 96360; 97161-GP; 97165-GO; 99284; 99285-25; A9270-GY; J1644; J2405; J3480; J7030; J7040

== ENCOUNTER 2019-06-01 01:51 | Inpatient (IN) | payer MEDICARE, BC ==
[2019-06-01] MEDS ORDERED: Acetaminophen 325 MG Tab PO PRN (14:41)
[2019-06-01] MEDS ORDERED: Sodium Chloride 0.9% 10 ML Syringe FLUSH PRN (14:41)
[2019-06-01] MEDS ORDERED: Magnesium Hydroxide 400 MG/5 ML Susp 30 ML Cup PO PRN (14:46)
[2019-06-01] MEDS: Potassium Chloride 10 MEQ Tab.ER PO SCH (17:43)
[2019-06-01] MEDS: Sodium Chloride 1 GM Tab PO SCH (20:13)
[2019-06-01] MEDS: diphenhydrAMINE 25 MG Tab PO PRN (20:13)
[2019-06-01] MEDS: busPIRone 5 MG Tab PO SCH (20:13)
[2019-06-01] MEDS: Metoprolol Succinate 50 MG Tab.ER PO SCH (20:14)
[2019-06-01] MEDS: Aspirin 81 MG Tab.EC PO SCH (20:14)
[2019-06-02 06:58] LABS: ANION GAP 13.1; CHLORIDE,CL 97 mmol/L (101-111); SODIUM,NA 128 mmol/L (135-145)
[2019-06-02] MEDS: busPIRone 5 MG Tab PO SCH ×2 (08:19→20:23)
[2019-06-02] MEDS: Sodium Chloride 1 GM Tab PO SCH ×3 (08:19→20:23)
[2019-06-02] MEDS: Furosemide 20 MG Tab PO SCH (08:20)
[2019-06-02] MEDS: Potassium Chloride 10 MEQ Tab.ER PO SCH ×2 (08:20→17:15)
--- NOTE | 2019-06-02 08:55 | HP ---
HISTORY OF PRESENT ILLNESS: The patient is an 84-year-old lady who was recently discharged from [facility] because of hyponatremia, hypokalemia, and encephalopathy secondary to the electrolyte imbalance, and after correction of the sodium and potassium, the patient improved, but because of her generalized weakness, she was then admitted to [facility] swing bed for further PT and OT. The patient currently denies any significant complaints. She denies any headache, chest pain, shortness of breath, abdominal pain, or any other complaints. PAST MEDICAL HISTORY: Remarkable for generalized anxiety disorder, complex sleep apnea syndrome, essential hypertension, and hyperlipidemia. FAMILY HISTORY: Noncontributory. SOCIAL HISTORY: The patient is a resident of [facility]. She is a nonsmoker and non-alcohol drinker. REVIEW OF SYSTEMS: As in HPI. The rest of the review of systems is negative. HOME MEDICATIONS: Zantac 75 b.i.d., sodium chloride 2 g t.i.d., potassium chloride 40 mEq b.i.d., milk of magnesia, Tylenol, Lasix 20 mg daily, Toprol-XL 50 mg daily, Pepcid 20 mg b.i.d., Colace, Benadryl, buspirone 15 mg b.i.d., and aspirin 81 mg daily. ALLERGIES: Lisinopril and statins (muscle weakness). PHYSICAL EXAMINATION: General: Very pleasant lady. She is alert and oriented, ambulatory, not in any acute distress. Vital Signs: Stable. HEENT: Normocephalic. There are pink palpebral conjunctivae. Sclerae anicteric. Neck: No JVD. No lymphadenopathy. Heart: Regular rate and rhythm. Normal S1 and S2. No gallops. No rubs. Lungs: Equal bilaterally. No crackles. No wheezing. Abdomen: Soft and nontender. Bowel sounds positive. Extremities: Negative for any significant pedal edema. No calf tenderness. ADMITTING DIAGNOSES: 1. Hyponatremia and hypokalemia secondary to syndrome of inappropriate antidiuretic hormone secretion and most likely secondary to Effexor. 2. Generalized anxiety disorder. 3. Complex sleep apnea syndrome. 4. Essential hypertension. 5. Hyperlipidemia. 6. General debility. TREATMENT PLAN: The patient is going to be admitted to swing bed. She will be continued on her current medications. PT and OT will be ordered, and we will check for chem-6 and magnesium level in a.m. The rest of the management as necessary. The patient is DNI/DNR as per the patient and daughter. [facility] /[id number]
[2019-06-02] MEDS: Metoprolol Succinate 50 MG Tab.ER PO SCH (20:23)
[2019-06-02] MEDS: Aspirin 81 MG Tab.EC PO SCH (20:23)
[2019-06-02] MEDS: diphenhydrAMINE 25 MG Tab PO PRN (20:24)
[2019-06-03] MEDS: busPIRone 5 MG Tab PO SCH ×2 (08:56→20:27)
[2019-06-03] MEDS: Sodium Chloride 1 GM Tab PO SCH ×3 (08:56→20:28)
[2019-06-03] MEDS: Furosemide 20 MG Tab PO SCH (08:57)
[2019-06-03] MEDS: Potassium Chloride 10 MEQ Tab.ER PO SCH ×2 (08:57→17:23)
[2019-06-03] MEDS: Metoprolol Succinate 50 MG Tab.ER PO SCH (20:27)
[2019-06-03] MEDS: Aspirin 81 MG Tab.EC PO SCH (20:28)
[2019-06-03] MEDS: diphenhydrAMINE 25 MG Tab PO PRN (20:28)
[2019-06-04] MEDS: busPIRone 5 MG Tab PO SCH ×3 (09:55→20:34)
[2019-06-04] MEDS: Sodium Chloride 1 GM Tab PO SCH ×4 (09:56→20:36)
[2019-06-04] MEDS: Furosemide 20 MG Tab PO SCH (09:56)
[2019-06-04] MEDS: Potassium Chloride 10 MEQ Tab.ER PO SCH ×2 (09:56→17:58)
[2019-06-04] MEDS: Metoprolol Succinate 50 MG Tab.ER PO SCH ×2 (19:35→20:36)
[2019-06-04] MEDS: Aspirin 81 MG Tab.EC PO SCH ×2 (19:36→20:35)
[2019-06-04] MEDS: diphenhydrAMINE 25 MG Tab PO PRN (19:36)
[2019-06-05] MEDS: Furosemide 20 MG Tab PO SCH (08:14)
[2019-06-05] MEDS: busPIRone 5 MG Tab PO SCH ×2 (08:14→20:20)
[2019-06-05] MEDS: Potassium Chloride 10 MEQ Tab.ER PO SCH ×2 (08:14→17:25)
[2019-06-05] MEDS: Sodium Chloride 1 GM Tab PO SCH ×3 (08:14→20:20)
[2019-06-05] MEDS: diphenhydrAMINE 25 MG Tab PO PRN (20:19)
[2019-06-05] MEDS: Aspirin 81 MG Tab.EC PO SCH (20:20)
[2019-06-05] MEDS: Metoprolol Succinate 50 MG Tab.ER PO SCH (20:20)
[2019-06-06] MEDS: Furosemide 20 MG Tab PO SCH (08:22)
[2019-06-06] MEDS: Sodium Chloride 1 GM Tab PO SCH ×3 (08:22→21:16)
[2019-06-06] MEDS: Potassium Chloride 10 MEQ Tab.ER PO SCH ×2 (08:22→17:30)
[2019-06-06] MEDS: busPIRone 5 MG Tab PO SCH ×2 (08:22→21:16)
--- NOTE | 2019-06-06 10:56 | PCM.PN ---
- General Info Date of Service: 06/06/19 Admission Dx/Problem (Free Text): Generalized debility Subjective Update: No acute events overnight. Reports rash on her back that has been itchy. Denies fevers, chills, chest pain, shortness of breath, n/v/d/c, no acute concerns. - Patient Data Vitals - Most Recent: Last Vital Signs Temp 97.1 F 06/05/19 20:20 Pulse 91 06/05/19 20:20 Resp 18 06/05/19 20:20 BP 164/86 H 06/05/19 20:20 Pulse Ox 97 06/05/19 20:20 Weight - Most Recent: 158 lb 12.8 oz I&O - Last 24 Hours: Intake & Output 06/05/19 06/06/19 06/06/19 22:59 06:59 14:59 Intake Total 350 Output Total 300 550 50 Balance 50 -550 -50 Med Orders - Current: Current Medications Acetaminophen (Tylenol) 650 mg PO Q4H PRN PRN Reason: Pain (Mild 1-3)/fever Last Admin: 06/04/19 00:09 Dose: 650 mg Aspirin (Halfprin) 81 mg PO BEDTIME [facility] Last Admin: 06/05/19 20:20 Dose: 81 mg Buspirone HCl (Buspar) 15 mg PO BID [facility] Last Admin: 06/06/19 08:22 Dose: 15 mg Diphenhydramine HCl (Benadryl) 25 mg PO BEDTIME PRN PRN Reason: Sleep Last Admin: 06/05/19 20:19 Dose: 25 mg Furosemide (Lasix) 20 mg PO DAILY [facility] Last Admin: 06/06/19 08:22 Dose: 20 mg Magnesium Hydroxide (Milk Of Magnesia) 30 ml PO BID PRN PRN Reason: Constipation Metoprolol Succinate (Toprol Xl) 50 mg PO BEDTIME [facility] Last Admin: 06/05/19 20:20 Dose: 50 mg Potassium Chloride (Klor-Con 10) 20 meq PO BIDMEALS [facility] Last Admin: 06/06/19 08:22 Dose: 20 meq Sodium Chloride (Saline Flush) 10 ml FLUSH ASDIRECTED PRN PRN Reason: Keep Vein Open Sodium Chloride (Sodium Chloride) 2 gm PO TID [facility] Last Admin: 06/06/19 08:22 Dose: 2 gm - Exam General: Alert, Oriented, Cooperative, No Acute Distress HEENT: Pupils Equal, Pupils Reactive, Mucous Membr. Moist/[place] Neck: Supple Lungs: Clear to Auscultation, Normal Respiratory Effort Cardiovascular: Regular Rate, Regular Rhythm GI/Abdominal Exam: Normal Bowel Sounds, Soft, Non-Tender, No Distention Back Exam: Other (Rash) Extremities: Normal Inspection, Non-Tender, No Pedal Edema Skin: Rash (On back) Neurological: No New Focal Deficit Psy/Mental Status: Alert, Normal Affect, Normal Mood - Problem List & Annotations (1) Hyperlipidemia SNOMED Code(s): 04463571 Code(s): E78.5 - HYPERLIPIDEMIA, UNSPECIFIED Status: Acute Current Visit : Yes (2) Essential hypertension SNOMED Code(s): 53847730 Code(s): I10 - ESSENTIAL (PRIMARY) HYPERTENSION Status: Acute Current Visit: Yes (3) Contact dermatitis SNOMED Code(s): 01022361 Code(s): L25.9 - UNSPECIFIED CONTACT DERMATITIS, UNSPECIFIED CAUSE Status: Acute Current Visit: Yes (4) Generalized weakness SNOMED Code(s): 67703736 Code(s): R53.1 - WEAKNESS Status: Acute Current Visit: No (5) Hyponatremia SNOMED Code(s): 00901360 Code(s): E87.1 - HYPO-OSMOLALITY AND HYPONATREMIA Status: Acute Current Visit: No - Problem List Review Problem List Initiated/Reviewed/Updated: Yes - My Orders Last 24 Hours: My Active Orders 06/06/19 09:54 BASIC METABOLIC PANEL,BMP [CHEM] Routine MAGNESIUM [CHEM] Routine PHOSPHORUS [CHEM] Routine 06/06/19 11:00 Hydrocortisone [Hydrocortisone 1% Crm] 30 gm TOP ASDIRECTED - Plan Plan:: #Generalized debility: - Continue PT/OT - Ambulate patient #Hyponatremia: Na of [address] [facility]. - Last Na here was 128. - Check BMP, mag, and phos - Fluid restriction, 1500 cc. #HTN: - Continue home meds #HLP: - Continue home meds. #Contact dermatitis: - Continue benadryl - Start hydrocortisone cream. DVT PPx: Lovenox GI PPx: General diet DNR/DNI.
[2019-06-06] MEDS ORDERED: Hydrocortisone 1% Crm 30 GM Tube TOP SCH (11:00)
[2019-06-06 11:24] LABS: ANION GAP 14.2; CHLORIDE,CL 99 mmol/L (101-111); SODIUM,NA 137 mmol/L (135-145)
[2019-06-06] MEDS: Enoxaparin 40 MG/0.4 ML Syringe SUBCUT SCH (13:24)
[2019-06-06] MEDS ORDERED: Hydrocortisone 1% Crm 30 GM Tube TOP PRN (14:26)
[2019-06-06] MEDS: Metoprolol Succinate 50 MG Tab.ER PO SCH (21:17)
[2019-06-06] MEDS: Aspirin 81 MG Tab.EC PO SCH (21:17)
[2019-06-06] MEDS: diphenhydrAMINE 25 MG Tab PO PRN (21:17)
[2019-06-07] MEDS: Sodium Chloride 1 GM Tab PO SCH ×3 (08:57→20:33)
[2019-06-07] MEDS: Potassium Chloride 10 MEQ Tab.ER PO SCH ×2 (08:57→18:15)
[2019-06-07] MEDS: busPIRone 5 MG Tab PO SCH ×2 (08:57→20:33)
[2019-06-07] MEDS: Furosemide 20 MG Tab PO SCH (08:57)
[2019-06-07] MEDS: Enoxaparin 40 MG/0.4 ML Syringe SUBCUT SCH (08:57)
[2019-06-07] MEDS: Metoprolol Succinate 50 MG Tab.ER PO SCH (20:33)
[2019-06-07] MEDS: Aspirin 81 MG Tab.EC PO SCH (20:33)
[2019-06-07] MEDS: diphenhydrAMINE 25 MG Tab PO PRN (20:33)
[2019-06-08 07:36] VITALS: BP 133/85
[2019-06-08] MEDS: Potassium Chloride 10 MEQ Tab.ER PO SCH (08:16)
[2019-06-08] MEDS: Sodium Chloride 1 GM Tab PO SCH (08:16)
[2019-06-08] MEDS: busPIRone 5 MG Tab PO SCH (08:16)
[2019-06-08] MEDS: Enoxaparin 40 MG/0.4 ML Syringe SUBCUT SCH (08:17)
[2019-06-08] MEDS: Furosemide 20 MG Tab PO SCH (08:17)
--- NOTE | 2019-06-08 09:15 | PCM.DCSUM1 ---
Discharge Summary - Hospital Course Free Text/Narrative:: Patient is an 84-y.o female who was admitted to swing bed for PT/OT due to generalized weakness. Patient tolerated therapies. Improved and was independent in her room. She is being discharged home to follow up with her PCP and nephrology, as per discharge plan from [facility]. [facility] Initial Comments: See H and P from Dr. Xiong Diagnosis: Stroke: No - Discharge Data Discharge Date: 06/08/19 Discharge Disposition: Home, Self-Care 01 Condition: Good - Discharge Diagnosis/Problem(s) (1) Hyperlipidemia SNOMED Code(s): 72818991 ICD Code: E78.5 - HYPERLIPIDEMIA, UNSPECIFIED Status: Acute Current Visit : Yes (2) Essential hypertension SNOMED Code(s): 44634124 ICD Code: I10 - ESSENTIAL (PRIMARY) HYPERTENSION Status: Acute Current Visit: Yes (3) Contact dermatitis SNOMED Code(s): 72581398 ICD Code: L25.9 - UNSPECIFIED CONTACT DERMATITIS, UNSPECIFIED CAUSE Status : Acute Current Visit: Yes (4) Generalized weakness SNOMED Code(s): 27099371 ICD Code: R53.1 - WEAKNESS Status: Acute Current Visit: No (5) Hyponatremia SNOMED Code(s): 34612180 ICD Code: E87.1 - HYPO-OSMOLALITY AND HYPONATREMIA Status: Acute Current Visit: No - Patient Summary/Data Consults: Consultations 06/01/19 14:48 Consult to Physical Therapy [PT Evaluation and Treatment] [CONS] Routine 06/01/19 14:49 Consult to Occupational Therapy [OT Evaluation and Treatment] [CONS] Routine - Discharge Plan *PRESCRIPTION DRUG MONITORING PROGRAM REVIEWED*: Not Applicable *COPY OF PRESCRIPTION DRUG MONITORING REPORT IN PATIENT [place]: Not Applicable Prescriptions/Med Rec: Hydrocortisone [Hydrocortisone 1% Crm] 30 gm TOP BID PRN #1 tube PRN Reason: Itching Home Medications: Home Meds Aspirin [Adult Low Dose Aspirin EC] 81 mg PO BEDTIME 01/14/15 [History] Metoprolol Succinate [Toprol XL 50mg] 50 mg PO BEDTIME 01/14/15 [History] busPIRone HCl [Buspirone HCl] 15 mg PO BID 05/26/19 [History] Famotidine 20 mg PO BID 06/01/19 [History] Furosemide [Lasix] 20 mg PO DAILY 06/01/19 [History] Magnesium Hydroxide [Milk of Magnesia] 30 ml PO BID PRN 06/01/19 [History] Potassium Chloride [Klor-Con] 20 meq PO BID 06/01/19 [History] Sodium Chloride 2 gm PO TID 06/01/19 [History] diphenhydrAMINE [Benadryl] 25 mg PO BEDTIME PRN 06/01/19 [History] Hydrocortisone [Hydrocortisone 1% Crm] 30 gm TOP BID PRN #1 tube 06/08/19 [Rx] - Discharge Summary/Plan Comment DC Time >30 min.: Yes - General Info Date of Service: 06/08/19 Admission Dx/Problem (Free Text: Generalized debility Subjective Update: No acute events overnight. Reports rash on her back is less itchy. Denies fevers , chills, chest pain, shortness of breath, n/v/d/c, no acute concerns. Anticipating discharge - Patient Data Vitals - Most Recent: Last Vital Signs Temp 98.1 F 06/08/19 07:20 Pulse 73 06/08/19 07:20 Resp 18 06/08/19 07:20 BP 133/85 06/08/19 07:20 Pulse Ox 95 06/08/19 07:20 Weight - Most Recent: 156 lb 9.6 oz I&O - Last 24 hours: Intake & Output 06/07/19 06/08/19 06/08/19 22:59 06:59 14:59 Intake Total 240 100 Balance 240 100 Med Orders - Current: Current Medications Acetaminophen (Tylenol) 650 mg PO Q4H PRN PRN Reason: Pain (Mild 1-3)/fever Last Admin: 06/04/19 00:09 Dose: 650 mg Aspirin (Halfprin) 81 mg PO BEDTIME [facility] Last Admin: 06/07/19 20:33 Dose: 81 mg Buspirone HCl (Buspar) 15 mg PO BID [facility] Last Admin: 06/08/19 08:16 Dose: 15 mg Diphenhydramine HCl (Benadryl) 25 mg PO BEDTIME PRN PRN Reason: Sleep Last Admin: 06/07/19 20:33 Dose: 25 mg Enoxaparin Sodium (Lovenox) 40 mg SUBCUT DAILY [facility] Last Admin: 06/08/19 08:17 Dose: 40 mg Furosemide (Lasix) 20 mg PO DAILY [facility] Last Admin: 06/08/19 08:17 Dose: 20 mg Hydrocortisone (Hydrocortisone 1% Crm) 30 gm TOP BID PRN PRN Reason: Itching Stop: 06/09/19 14:31 Last Admin: 06/07/19 08:57 Dose: 1 applic Magnesium Hydroxide (Milk Of Magnesia) 30 ml PO BID PRN PRN Reason: Constipation Metoprolol Succinate (Toprol Xl) 50 mg PO BEDTIME [facility] Last Admin: 06/07/19 20:33 Dose: 50 mg Potassium Chloride (Klor-Con 10) 20 meq PO BIDMEALS [facility] Last Admin: 06/08/19 08:16 Dose: 20 meq Sodium Chloride (Saline Flush) 10 ml FLUSH ASDIRECTED PRN PRN Reason: Keep Vein Open Sodium Chloride (Sodium Chloride) 2 gm PO TID [facility] Last Admin: 06/08/19 08:16 Dose: 2 gm Discontinued Medications Hydrocortisone (Hydrocortisone 1% Crm) 30 gm TOP ASDIRECTED [facility] Stop: 06/09/19 11:01 - Exam General: Reports: Alert, Oriented, Cooperative, No Acute Distress HEENT: Reports: Pupils Equal, Pupils Reactive, Mucous Membr. Moist/[place] Neck: Reports: Supple Lungs: Reports: Clear to Auscultation, Normal Respiratory Effort Cardiovascular: Reports: Regular Rate, Regular Rhythm, No Murmurs GI/Abdominal Exam: Normal Bowel Sounds, Soft, No Distention Extremities: Normal Inspection, Non-Tender, No Pedal Edema Skin: Reports: Warm, Dry, Intact, Rash (Rash on back is improved compared to ) Neurological: Reports: No New Focal Deficit Psy/Mental Status: Reports: Alert, Normal Affect, Normal Mood
== END 2019-06-08 11:30 | disposition home or self-care (01) | DRG 948 ==
LOC: DL.MS 01:51 → UNDOADMIN 01:51 → DL.MS 14:42
PROVIDERS: ADMIT Internal Medicine; ATTEND Internal Medicine
DX: R53.1 Weakness (principal); E87.1 Hypo-osmolality and hyponatremia; E78.5 Hyperlipidemia, unspecified; I10 Essential (primary) hypertension; L25.9 Unspecified contact dermatitis, unspecified cause; F41.1 Generalized anxiety disorder; G47.39 Other sleep apnea; Z66 Do not resuscitate; R53.81 Other malaise; Z79.82 Long term (current) use of aspirin; Z79.899 Other long term (current) drug therapy; Z88.8 Allergy status to other drugs, medicaments and biological substances
CPT/HCPCS: 36415; 80048; 83735; 84100; 97110-GO; 97110-GP; 97116-GP; 97161-GP; 97165-GO; 97530-GO; 97535-GO; A9270-GY; J1650

== ENCOUNTER 2019-12-08 08:02 | Emergency (ER) | payer MEDICARE, BC ==
[2019-12-08 08:13] VITALS: BP 158/73; PULSE 72
[2019-12-08] MEDS ORDERED: Aspirin 81 MG Tab.Chew PO ONE (08:15)
--- NOTE | 2019-12-08 08:34 | EDM.PDOC ---
<Anmol Matthew - Last Filed: 12/08/19 09:19> ED HPI GENERAL MEDICAL PROBLEM - General Chief Complaint: Chest Pain Stated Complaint: CHEST PAIN Time Seen by Provider: 12/08/19 08:29 Source of Information: Reports: Patient, RN, RN Notes Reviewed History Limitations: Reports: No Limitations - History of Present Illness INITIAL COMMENTS - FREE TEXT/NARRATIVE: 84 year old female presents to the ER for complaint of chest pain that began in the night and woke her up at about midnight. She cannot remember how long it lasted but had to get up and sit in the chair for it to resolve. She describes the pain as a discomfort or pressure on her left chest that did not radiate. She has not taken any medication for it at home. She cannot remember if she has had any pain like this in the past. She does not have any pain currently and ambulated to the ER. Patient is a poor historian. Onset Date: 12/08/19 Onset Time: 00:00 Location: Reports: Chest Quality: Reports: Ache, Pressure Severity: Mild Improves with: Reports: None Worsens with: Reports: None Associated Symptoms: Reports: Chest Pain. Denies: Cough, cough w sputum, Fever/ Chills, Headaches, Loss of Appetite, Nausea/Vomiting, Shortness of Breath, Syncope Left Chest Pain Score (Numeric/FACES): 8 - Related Data Allergies Allergy/AdvReac Type Severity Reaction Status Date / Time lisinopril Allergy Other Verified 12/08/19 08:08 [id number] Reductase Allergy Muscle Verified 12/08/19 08:08 Inhibitor Weakness Home Meds: Home Meds Aspirin [Adult Low Dose Aspirin EC] 81 mg PO BEDTIME 01/14/15 [History] Metoprolol Succinate [Toprol XL 50mg] 50 mg PO BEDTIME 01/14/15 [History] busPIRone HCl [Buspirone HCl] 15 mg PO BID 05/26/19 [History] Famotidine 20 mg PO BID 06/01/19 [History] Furosemide [Lasix] 20 mg PO DAILY 06/01/19 [History] Magnesium Hydroxide [Milk of Magnesia] 30 ml PO BID PRN 06/01/19 [History] Potassium Chloride [Klor-Con] 20 meq PO BID 06/01/19 [History] Sodium Chloride 2 gm PO TID 06/01/19 [History] diphenhydrAMINE [Benadryl] 25 mg PO BEDTIME PRN 06/01/19 [History] Hydrocortisone [Hydrocortisone 1% Crm] 30 gm TOP BID PRN #1 tube 06/08/19 [Rx] Past Medical History HEENT History: Reports: Cataract, Impaired Vision Cardiovascular History: Reports: Hypertension Respiratory History: Reports: None Gastrointestinal History: Reports: GERD Genitourinary History: Reports: None 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: Neurological History: Reports: Other (See Below) Other Neuro History: forgetful at times Psychiatric History: Reports: Anxiety, Dementia, Depression Endocrine/Metabolic History: Reports: Other (See Below) Other Endocrine/Metabolic History: 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 Hematologic History: Reports: None Immunologic History: Reports: None Oncologic (Cancer) History: Reports: Squamous Cell Carcinoma Other Dermatologic History: Squamous cell on right arm - Infectious Disease History Infectious Disease History: Reports: Shingles - Past Surgical History HEENT Surgical History: Reports: Adenoidectomy, Cataract Surgery, Tonsillectomy Cardiovascular Surgical History: Reports: None GI Surgical History: Reports: Colonoscopy Neurological Surgical History: Reports: None Musculoskeletal Surgical History: Reports: Knee Replacement, Other (See Below) Other Musculoskeletal Surgeries/Procedures:: bilateral knee replacement Social & Family History - Family History Family Medical History: Noncontributory - Tobacco Use Smoking Status *Q: Never Smoker Second Hand Smoke Exposure: No - Caffeine Use Caffeine Use: Reports: None - Recreational Drug Use Recreational Drug Use: No - Living Situation & Occupation Occupation: Retired ED ROS GENERAL - Review of Systems Review Of Systems: Comprehensive ROS is negative, except as noted in HPI. ED EXAM, GENERAL - Physical Exam Exam: See Below Exam Limited By: No Limitations General Appearance: Alert, WD/WN, No Apparent Distress Eye Exam: Bilateral Eye: EOMI, Normal Inspection, PERRL Ears: Normal External Exam, Normal Canal, Hearing Grossly Normal, Normal TMs Ear Exam: Bilateral Ear: Auricle Normal, Canal Normal, TM normal Nose: Normal Inspection, Normal Mucosa, No Blood Throat/Mouth: Normal Inspection, Normal Lips, Normal Teeth, Normal Gums, Normal Oropharynx, Normal Voice, No Airway Compromise Head: Atraumatic, Normocephalic Neck: Normal Inspection, Supple, Non-Tender, Full Range of Motion Respiratory/Chest: No Respiratory Distress, Lungs Clear, Normal Breath Sounds, No Accessory Muscle Use, Chest Non-Tender Cardiovascular: Normal Peripheral Pulses, Regular Rate, Rhythm, No Edema, No Gallop, No JVD, No Murmur, No Rub GI/Abdominal: Normal Bowel Sounds, Soft, Non-Tender, No Organomegaly, No Distention, No Abnormal Bruit, No Mass Neurological: Alert, Oriented, CN II-XII Intact, Normal Cognition, Normal Gait, Normal Reflexes, No Motor/Sensory Deficits Psychiatric: Normal Affect, Normal Mood Skin Exam: Warm, Dry, Intact, Normal Color, No Rash Course - Vital Signs Last Recorded V/S: Last Vital Signs Temp 35.9 C L 12/08/19 08:08 Pulse 72 12/08/19 08:08 Resp 16 12/08/19 08:08 BP 158/73 H 12/08/19 08:08 Pulse Ox 100 12/08/19 08:08 - Orders/Labs/Meds Orders: Active Orders 24 hr Category Date Time Status EKG Documentation Completion [RC] URGENT Care 12/08/19 08:04 Active Labs: Laboratory Tests 12/08/19 12/08/19 Range/Units 08:20 08:20 WBC 6.7 (5.0-10.0) 10^3/uL RBC 4.77 (4.2-5.4) 10^6/uL Hgb 14.6 (12.0-16.0) g/dL Hct 42.1 (37.0-47.0) % MCV 88.3 (80-100) fL MCH 30.6 (27.0-34.0) pg MCHC 34.7 (33.0-35.0) g/dL Plt Count 322 (150-450) 10^3/uL Neut % (Auto) 68.4 (42.2-75.2) % Lymph % (Auto) 20.1 L (20.5-50.1) % [place] % (Auto) 10.3 H (2-8) % Eos % (Auto) 0.3 L (1.0-3.0) % Baso % (Auto) 0.9 (0.0-1.0) % Sodium 133 L (135-145) mmol/L Potassium 3.4 L (3.6-5.0) mmol/L Chloride 99 L (101-111) mmol/L Carbon Dioxide 26.0 (21.0-31.0) mmol/L Anion Gap 11.4 BUN 10 (7-18) mg/dL Creatinine 0.5 L (0.6-1.3) mg/dL Est Cr Clr Drug Dosing 78.41 mL/min Estimated GFR (MDRD) > 60 BUN/Creatinine Ratio 20.00 Glucose 115 H (74-105) mg/dL Calcium 9.2 (8.4-10.2) mg/dl Total Bilirubin 0.9 (0.2-1.0) mg/dL AST 22 (10-42) IU/L ALT 16 (10-60) IU/L Alkaline Phosphatase 33 L (42-121) IU/L Troponin I < 0.02 (0.00-0.02) ng/ml B-Natriuretic Peptide 91 (0-100) pg/ml Total Protein 7.3 (6.7-8.2) g/dl Albumin 4.4 (3.2-5.5) g/dl Globulin 2.9 Albumin/Globulin Ratio 1.52 Meds: Medications Discontinued Medications Generic Name Dose Route Start Last Admin Trade Name Freq PRN Reason Stop Dose Admin Aspirin 324 mg 12/08/19 08:15 12/08/19 08:27 Aspirin PO 12/08/19 08:16 324 mg ONETIME ONE Administration Departure - Departure Time of Disposition: 09:19 Condition: Good Clinical Impression: Atypical chest pain Instructions: Chest Wall Pain, [id number], Nonspecific Chest Pain, Easy-to- Read, Pain Without a Known Cause Forms: ED Department Discharge Additional Instructions: Lab results and X-rays were discussed with patient during the visit. If the pain comes back return to the ER right away for further evaluation. Follow-up with your primary care provider if the pain returns more often. Continue to take all home medications as prescribed. Sepsis Event Note - Evaluation Sepsis Screening Result: No Definite Risk - Focused Exam Vital Signs: Vital Signs Temp Pulse Resp BP Pulse Ox 12/08/19 08:08 35.9 C L 72 16 158/73 H 100 Date Exam was Performed: 12/08/19 Time Exam was Performed: 09:19 - My Orders Last 24 Hours: My Active Orders 12/08/19 08:04 EKG Documentation Completion [RC] URGENT - Assessment/Plan Last 24 Hours: My Active Orders 12/08/19 08:04 EKG Documentation Completion [RC] URGENT <Hill Thomas M - Last Filed: 12/08/19 09:23> Course - Re-Assessments/Exams Free Text/Narrative Re-Assessment/Exam: 12/08/19 09:22 I have examined the patient. I have discussed findings and treatment plan with the PA student. I agree with the assessment and plan in the following students note. Sepsis Event Note - Focused Exam Date Exam was Performed: 12/08/19 Time Exam was Performed: 09:22
[2019-12-08 08:46] LABS: ANION GAP 11.4; CHLORIDE,CL 99 mmol/L (101-111); SODIUM,NA 133 mmol/L (135-145)
== END 2019-12-08 09:32 | disposition home or self-care (01) ==
LOC: DL.ED 08:02
DX: R07.89 Other chest pain (principal); I10 Essential (primary) hypertension; K21.9 Gastro-esophageal reflux disease without esophagitis; F41.9 Anxiety disorder, unspecified; F32.9 Major depressive disorder, single episode, unspecified; Z88.8 Allergy status to other drugs, medicaments and biological substances; Z79.82 Long term (current) use of aspirin; Z79.899 Other long term (current) drug therapy
CPT/HCPCS: 36415; 71045; 80053; 83880; 84484; 85025; 93005; 99285; A9270; 99283